=== PATIENT | female | born 1990 | race Caucasian/White ===

== ENCOUNTER 2017-01-22 09:57 | Day surgery (SDC) | payer BC, OTHER ==
--- NOTE | 2017-01-22 09:26 | GHP ---
[f rep st] PREOP HISTORY AND PHYSICAL DATE OF ADMISSION: 01/22/2017 CHIEF COMPLAINT: Breast hypertrophy. HISTORY OF PRESENTING COMPLAINT: The patient is a 26-year-old female, who has been bothered by over- sized breasts since puberty. She complains of neck, back and shoulder pain and her shoulder straps o f her bras cutting in. She has difficulty with exercising due to this. PAST MEDICAL HISTORY: Unremarkable. She has a history of irritable bowel syndrome and has had 1 col onoscopy. MEDICATIONS: None. ALLERGIES: No known drug allergies. EXAMINATION: GENERAL: She is a healthy-looking 26-year-old female. CARDIOVASCULAR: Heart sounds ar e normal. RESPIRATORY: Exam shows clear, good air entry. BREASTS: Examination of the breasts reve als significant hypertrophy, with an estimated 900 g of excess tissue on the right side and 700 g on the left side. IMPRESSION: Fit for procedure. PLAN: Bilateral breast reduction. /[id number]/MODL
[~2017-01-22 09:57] MED LIST: ceFAZolin 2 GM in D5W 100 ML IV ONE
--- NOTE | 2017-01-22 10:04 | PDANEPAE ---
ANE History of Present Illness 26 year old female presents for breast reduction. ANE Past Medical History - Cardiovascular History Hx Hypertension: No Hx Arrhythmias: No Hx Chest Pain: No Hx Coronary Artery / Peripheral Vascular Disease: No Hx CHF / Valvular Disease: No Hx Palpitations: No - Pulmonary History Hx COPD: No Hx Asthma/Reactive Airway Disease: No Hx Recent Upper Respiratory Infection: No Hx Oxygen in Use at Home: No Hx Sleep Apnea: No Sleep Apnea Screening Result - Last Documented: Negative Pulmonary History Comment: STREP THROAT 12/2016 - Neurologic History Hx Cerebrovascular Accident: No Hx Seizures: No Hx Dementia: No Neurologic History Comment: INTERMITTENT MIGRAINES - Endocrine History Hx Diabetes: No Hypothyroid: No Hyperthyroid: No Obesity: no - Renal History Hx Renal Disorders: No - Liver History Hx Hepatic Disorders: No - Neurological & Psychiatric Hx Hx Neurological and Psychiatric Disorders: No - Cancer History Hx Cancer: No - Congenital Disorder History Hx Congenital Disorders: No - GI History GERD: no Hx Gastrointestinal Disorders: Yes Gastrointestinal History Comment: IBS - Chronic Pain History Chronic Pain: No - Surgical History Prior Surgeries: WISDOM TEETH ANE Review of Systems Review of systems is: negative Review of Systems: - Exercise capacity Exercise capacity: >=4 METS METS (RN): 4 METS ANE Patient History - Allergies Allergies/Adverse Reactions: No Known Allergies Allergy (Verified 01/22/17 11:20) - Home Medications Home medications: home medication list seen and reviewed Home Medications: NK [No Known Home Meds] 01/20/17 [Last Taken Unknown] - NPO status NPO Status: no food or drink >8 hours - Anes Hx Anes Hx: no prior problems - Smoking Hx Smoking Status: Never smoked - Alcohol Use Alcohol Use: Rarely - Family Anes Hx Family Anes Hx: neg - N/A Family Hx Anesthesia Complications: NEG ANE Labs/Vital Signs - Vital Signs Vital Signs: reviewed preoperatively; see RN documention for details Height: 175.26 cm Weight: 80.286 kg ANE Physical Exam - Airway Neck exam: FROM Mallampati Score: Class 1 Mouth exam: normal dental/mouth exam - Pulmonary Pulmonary: no respiratory distress - Cardiovascular Cardiovascular: regular rate and rhythym - ASA Status ASA Status: II ANE Anesthesia Plan Anesthesia Plan: general endotracheal anesthesia Total IV Anesthesia: No
[2017-01-22] MEDS ORDERED: ceFAZolin 2 GM/DEXTROSE 100 ML IV ONE (10:15)
[2017-01-22] MEDS ORDERED: LR 1,000 ML IV ONE (10:29)
[2017-01-22] MEDS ORDERED: LIDOCAINE 1% 2 ML INJ ID PRN (10:29)
[2017-01-22] MEDS ORDERED: LIDO/EPI 1% **for epidural** 30 ML SDV ONE (11:25)
[2017-01-22] MEDS ORDERED: MIDAZOLAM 2 MG/2 ML VIAL IVP ONE (11:32)
[2017-01-22] MEDS ORDERED: PROPOFOL 200 MG/20 ML VIAL ONE ×3 (11:38→13:44)
[2017-01-22] MEDS ORDERED: fentaNYL 100 MCG/2 ML INJ ONE ×5 (11:38→15:15)
[2017-01-22] MEDS ORDERED: ROCURONIUM 50 MG/5 ML VIAL ONE (11:41)
[2017-01-22] MEDS ORDERED: LIDOCAINE 2% 5 ML SDV ONE (11:41)
[2017-01-22] MEDS ORDERED: SCOPOLAMINE HYDROBROMIDE 1 MG/3 DAYS PATCH TD SCH (11:45)
[2017-01-22] MEDS ORDERED: DEXAMETHASONE 4 MG/ML VIAL ONE (11:53)
[2017-01-22] MEDS ORDERED: ONDANSETRON 4 MG/2 ML VIAL ONE (12:56)
[2017-01-22] MEDS ORDERED: LR 500 ML IV PRN (13:10)
[2017-01-22] MEDS ORDERED: HYDROmorphONE/DILAUDID 1 MG/ML INJ IVP PRN (13:10)
[2017-01-22] MEDS ORDERED: ONDANSETRON 4 MG/2 ML VIAL IVP PRN (13:10)
[2017-01-22] MEDS ORDERED: NALOXONE HCL 0.4 MG/ML INJ IVP PRN ×2 (13:10→17:01)
[2017-01-22] MEDS ORDERED: SUGAMMADEX SODIUM 200 MG/2 ML VIAL IVP ONE (14:07)
[2017-01-22] MEDS: fentaNYL 100 MCG/2 ML INJ IVP PRN ×4 (14:53→15:40)
[2017-01-22 15:49] VITALS: PULSE 93; TEMP 97.7
[2017-01-22 16:44] VITALS: RESP 13
[2017-01-22] MEDS ORDERED: OXYCODONE/APAP 5/325 TAB PO PRN (17:01)
[2017-01-22] MEDS ORDERED: OXYCODONE/APAP 5/325 TAB ONE (17:02)
[2017-01-22 17:52] VITALS: BP 125/69; O2SAT 94
--- NOTE | 2017-01-22 17:59 | GOP ---
[f rep st] OPERATIVE REPORT DATE OF OPERATION: 01/22/2017 SURGEON: Mike Kennedy MD PREOPERATIVE DIAGNOSIS: Mammary hypertrophy. POSTOPERATIVE DIAGNOSIS: Mammary hypertrophy. PROCEDURE PERFORMED: Bilateral breast reduction. FINDINGS: ESTIMATED BLOOD LOSS: 50 mL. DESCRIPTION OF PROCEDURE: With patient lying supine under general anesthesia, anterior chest region was prepped and draped in the usual fashion. Incisions were made according to preoperative markings for a vertical pattern breast reduction with superior medial pedicle technique. Pedicles were de-epi thelialized and skin flaps were developed. The pedicles were then reduced down appropriately, removi ng tissue primarily from the lateral and superior portions of the breast. A total of 824 g was remov ed on the right side and 650 g on the left side. Bleeders were controlled with electrocautery. Clos ure was carried out with 3-0 Stratafix running subcuticular sutures along the entire length of the in cision. On both sides, medial redundancy was treated by further skin excision extending the inframam jacob scar in a medial direction to give a Eisenberg pattern. Dhaval-Ortiz drains were placed bilaterally during the course of the closure. Dressings of Steri-Strips and gauze were applied. The procedure was tolerated well. /[id number]/MODL
--- NOTE | 2017-01-22 18:37 | POSTANESTH ---
Post Anesthetic Evaluation Cardiovascular Status: Normal, Stable, Similar to Pre-Op Cond Respiratory Status: Normal, Stable, Similar to Pre-op Cond. Level of Consciousness/Mental Status: Can Participate in Eval, Alert and Oriented Pain Control: Adequate, Prn Tx Ordered Nausea/Vomiting Control: Adequate, Prn Tx Ordered Complications Possibly Related to Anesthesia: None Noted
[2017-01-25] MEDS ORDERED: PATCH REMOVAL 1 EA PATCH TD SCH (11:33)
== END 2017-01-22 17:50 | disposition home or self-care (01) ==
LOC: FSGY 09:57
PROVIDERS: ATTEND Plastic Surgery
PROC: 0HBV0ZZ Excision of Bilateral Breast, Open Approach (ICD-10-PCS; principal; 2017-01-22 11:15)
DX: N62 Hypertrophy of breast (principal); M54.2 Cervicalgia; M54.6 Pain in thoracic spine; M25.511 Pain in right shoulder; M25.512 Pain in left shoulder; K58.9 Irritable bowel syndrome, unspecified
CPT/HCPCS: J0690; J1100; J2250; J2405; J2704; J3010